=== PATIENT | female | born 2000 | race Caucasian/White ===

== ENCOUNTER 2020-03-08 19:07 | Emergency (ER) | payer MEDICAID ==
[~2020-03-08] VITALS: Ht 152.4 cm; Wt 55.3 kg
[2020-03-08 19:13] VITALS: Ht 152.4 cm; Wt 55.3 kg
[2020-03-08 21:56] VITALS: BP 109/65
== END 2020-03-08 21:54 | disposition home or self-care (01) ==
LOC: ED 19:07
DX: S33.5XXA Sprain of ligaments of lumbar spine, initial encounter (principal); S23.3XXA Sprain of ligaments of thoracic spine, initial encounter; X58.XXXA Exposure to other specified factors, initial encounter; Y93.44 Activity, trampolining; Y92.89 Other specified places as the place of occurrence of the external cause; Y99.8 Other external cause status
CPT/HCPCS: 72072; J1885